=== PATIENT | female | born 1990 | race Caucasian/White ===

== ENCOUNTER 2019-04-24 20:17 | Emergency (ER) | payer SELFPAY ==
[2019-04-24] MEDS ORDERED: Ketorolac 60 MG/2 ML SDV IM ONE (20:26)
--- NOTE | 2019-04-24 20:27 | EDM.PDOC ---
ED HPI GENERAL MEDICAL PROBLEM - General Chief Complaint: Back Pain or Injury Stated Complaint: SEVERE BACK PAIN Time Seen by Provider: 04/24/19 20:25 Source of Information: Reports: Patient History Limitations: Reports: No Limitations - History of Present Illness INITIAL COMMENTS - FREE TEXT/NARRATIVE: HISTORY AND PHYSICAL: History of present illness: Patient is a 28-year-old female who presents to the emergency room today with complaints of mid thoracic/upper lumbar back pain. 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 She states with any movement or engaging of her core or trunk she has sharp pain. She states when she is resting or sitting still the pain is at a minimum. Describes it as muscular strain/spasm. She denies any injury, trauma, or falls. Review of systems: As per history of present illness and below otherwise all systems reviewed and negative. Past medical history: As per history of present illness and as reviewed below otherwise noncontributory. Surgical history: As per history of present illness and as reviewed below otherwise noncontributory. Social history: See social history for further information Family history: As per history of present illness and as reviewed below otherwise noncontributory. Physical exam: General: Well-developed and well-nourished 28-year-old female. Alert and oriented. Nontoxic appearing and in no acute distress. HEENT: Atraumatic, normocephalic, pupils equal and reactive bilaterally, negative for conjunctival pallor or scleral icterus, mucous membranes moist, TMs normal bilaterally, throat clear, neck supple, nontender, trachea midline. No drooling or trismus noted. No meningeal signs. No hot potato voice noted. Lungs: Clear to auscultation, breath sounds equal bilaterally, chest nontender. Heart: S1S2, regular rate and rhythm without overt murmur Abdomen: Soft, nondistended, nontender. Negative for masses or hepatosplenomegaly. Negative for costovertebral tenderness. Pelvis: Stable nontender. C-spine/Back: No pinpoint vertebral tenderness upon palpation. No crepitus, step -offs or obvious deformities. Paraspinous muscular tenderness to the distal thoracic and upper lumbar region bilaterally Patient is ambulatory into the emergency room without difficulty or deficit. Able to rock back on heels and walk on toes. Denies any urinary or fecal incontinence. Denies any numbness, tingling or saddle paresthesia. Skin: Intact, warm, dry. No lesions or rashes noted. Extremities: Atraumatic, moves all extremities per self without difficulty or deficits, negative for cords or calf pain. Neurovascular unremarkable. Neuro: Awake, alert, oriented. Cranial nerves II through XII unremarkable. Cerebellum unremarkable. Motor and sensory unremarkable throughout. Exam nonfocal. Notes: X-ray shows no acute findings. She states she did not feel much improvement with the IM injections. We'll switch to a narcotic pain medication with thorough education. Supportive care measures were reviewed and discussed. Voices understanding and is agreeable to plan of care. Denies any further questions or concerns at this time. Diagnostics: Thoracic/lumbar x-ray Therapeutics: Toradol, Norflex Prescription: [place] (#15) Impression: Back Pain Plan: 1. The medication you received today does cause drowsiness, so do not drive for the remaining day 2. When resting please lay on a flat firm surface. Limit your immobility to prevent muscle stiffness. Get up to ambulate/move around/gentle stretching multiple times throughout the day. May alternate heat and ice to the painful areas 3. Tylenol and/or Ibuprofen as needed for back pain. Otherwise take the prescribed [place] as directed, this medication may cause drowsiness a do not take it will driving her needing to be functioning outside of the house. 4. Please follow-up with your primary care provider as we discussed. Return to the ED as needed and as discussed. Definitive disposition and diagnosis as appropriate pending reevaluation and review of above. back Pain Score (Numeric/FACES): 10 - Related Data Allergies Allergy/AdvReac Type Severity Reaction Status Date / Time No Known Allergies Allergy Verified 04/24/19 20:21 Home Meds: Home Meds Acetaminophen/HYDROcodone [[place] 325-5 MG] 1 dose PO Q4H #20 tablet 04/24/19 [Rx ] ED ROS GENERAL - Review of Systems Review Of Systems: ROS reveals no pertinent complaints other than HPI. ED EXAM,LOWER BACK PAIN/INJURY - Physical Exam Exam: See Below (See dictation) Course - Vital Signs Last Recorded V/S: Last Vital Signs Temp 97 F 04/24/19 20:22 Pulse 80 09/30/19 21:53 Resp 17 04/24/19 21:53 BP 104/70 04/24/19 21:53 Pulse Ox 99 04/24/19 21:53 - Orders/Labs/Meds Meds: Medications Discontinued Medications Generic Name Dose Route Start Last Admin Trade Name Paddy PRN Reason Stop Dose Admin Ketorolac Tromethamine 60 mg 04/24/19 20:26 04/24/19 20:31 Toradol IM 04/24/19 20:27 60 mg ONETIME ONE Administration Orphenadrine Citrate 60 mg 04/24/19 20:26 04/24/19 20:30 Norflex IM 04/24/19 20:27 60 mg NOW STA Administration Departure - Departure Time of Disposition: 21:02 Disposition: Home, Self-Care 01 Clinical Impression: Acute mid back pain - Discharge Information Prescriptions: Acetaminophen/HYDROcodone [[place] 325-5 MG] 1 dose PO Q4H #20 tablet Instructions: Muscle Strain, [id number] Referrals: PCP,None [Primary Care Provider] - Forms: ED Department Discharge Additional Instructions: The following information is given to patients seen in the emergency department who are being discharged to home. This information is to outline your options for follow-up care. We provide all patients seen in our emergency department with a follow-up referral. The need for follow-up, as well as the timing and circumstances, are variable depending upon the specifics of your emergency department visit. If you don't have a primary care physician on staff, we will provide you with a referral. We always advise you to contact your personal physician following an emergency department visit to inform them of the circumstance of the visit and for follow-up with them and/or the need for any referrals to a consulting specialist. The emergency department will also refer you to a specialist when appropriate. This referral assures that you have the opportunity for follow-up care with a specialist. All of these measure are taken in an effort to provide you with optimal care, which includes your follow-up. Under all circumstances we always encourage you to contact your private physician who remains a resource for coordinating your care. When calling for follow-up care, please make the office aware that this follow-up is from your recent emergency room visit. If for any reason you are refused follow-up, please contact the [facility] Emergency Department at and asked to speak to the emergency department charge nurse. ANTON[facility] [address] [place] [address] [facility] [address] [place] [address] 1. The medication you received today does cause drowsiness, so do not drive for the remaining day 2. When resting please lay on a flat firm surface. Limit your immobility to prevent muscle stiffness. Get up to ambulate/move around/gentle stretching multiple times throughout the day. May alternate heat and ice to the painful areas 3. Tylenol and/or Ibuprofen as needed for back pain. Otherwise take the prescribed [place] as directed, this medication may cause drowsiness a do not take it will driving her needing to be functioning outside of the house. 4. Please follow-up with your primary care provider as we discussed. Return to the ED as needed and as discussed.
--- NOTE | 2019-04-24 20:54 | CR ---
INDICATION: Mid back pain after bending over. No history of trauma. COMPARISON: None available. TECHNIQUE: AP and lateral views of the thoracolumbar spine were obtained for a total of two views. FINDINGS: There is minimal scoliosis of the upper lumbar spine convex towards the left with the apex at the L2 level. There is no sign of fracture or subluxation. The vertebral bodies are normal in height and are in anatomic alignment. The intervertebral disc spaces are normal in height. Soft tissue planes are normal in appearance. The visualized lower chest and upper abdomen are normal in appearance. IMPRESSION: Mild scoliosis of the upper lumbar spine convex towards the left. Otherwise normal thoracolumbar spine. Dictated by Elliot Myers MD @ Apr 24 2019 8:52PM Signed by Dr. Elliot Myers @ Apr 24 2019 8:53PM
== END 2019-04-24 21:54 | disposition home or self-care (01) ==
LOC: MW.ED 20:17
DX: M54.6 Pain in thoracic spine (principal)
CPT/HCPCS: 72080; 96372; 99283; J1885; J2360

== ENCOUNTER 2020-06-15 12:52 | Emergency (ER) | payer MEDICAID ==
--- NOTE | 2020-06-15 13:24 | EDM.PDOC ---
ED HPI GENERAL MEDICAL PROBLEM - General Chief Complaint: Lower Extremity Injury/Pain Stated Complaint: LT ANKLE INJURY Time Seen by Provider: 06/15/20 12:53 Source of Information: Reports: Patient History Limitations: Reports: No Limitations - History of Present Illness INITIAL COMMENTS - FREE TEXT/NARRATIVE: HISTORY AND PHYSICAL: History of present illness: Patient is a 30-year-old female who presents to the ED today with concern of left ankle injury that occurred just prior to arrival to the ED. Patient states she was carrying groceries inside her house and she was walking up her steps. Patient states that she slipped and missed a step and twisted her left ankle. Patient states that she heard a "popping "sensation and had immediate pain to the outside of her left ankle. Patient states that she did not completely fall and hit her head or lose consciousness. Patient states that she was able to bear weight immediately following the incident but had pain with doing so. Patient states that she did not take anything for her symptoms and came immediately to the emergency room. Denies any other symptoms or concerns. Patient denies fever, chills, chest pain, shortness of breath, or cough. Denies headache, neck stiff ness, change in vision, syncope, or near syncope. Denies nausea, vomiting, abdominal pain, diarrhea, constipation, or dysuria. Has not noted any blood in urine or stool. Patient has been eating and drinking appropriately. Review of systems: As per history of present illness and below otherwise all systems reviewed and negative. Past medical history: As per history of present illness and as reviewed below otherwise noncontributory. Surgical history: As per history of present illness and as reviewed below otherwise noncontributory. Social history: See social history for further information Family history: As per history of present illness and as reviewed below otherwise noncontributory. Physical exam: General: Patient is alert, oriented, and in no acute distress. Patient sitting comfortably on exam table. HEENT: Atraumatic, normocephalic, pupils equal and reactive bilaterally, negative for conjunctival pallor or scleral icterus, mucous membranes moist, TMs normal bilaterally, throat clear, neck supple, nontender, trachea midline. No drooling or trismus noted. No meningeal signs. No hot potato voice noted. Lungs: Clear to auscultation, breath sounds equal bilaterally, chest nontender. Heart: S1S2, regular rate and rhythm without overt murmur Abdomen: Soft, nondistended, nontender. Negative for masses or hepatosp lenomegaly. Negative for costovertebral tenderness. Pelvis: Stable nontender. Genitourinary: Deferred. Rectal: Deferred. Skin: Intact, warm, dry. No lesions or rashes noted. Extremities: Patient does have pain with palpation of the lateral malleolus with mild edema of this area. Patient has limited range of motion of the left ankle due to pain and discomfort. Patient does have full range of motion of remaining bilateral lower extremities. Dorsalis pedis and posterior tibial pulses are grossly intact of the left lower extremity with capillary refill less than 2 seconds. Patient did ambulate into the emergency room today but did have pain with the left ankle and was limping with her gait. Otherwise, atraumatic, negative for cords or calf pain. Neurovascular unremarkable. Neuro: Awake, alert, oriented. Cranial nerves II through XII unremarkable. Cerebellum unremarkable. Motor and sensory unremarkable throughout. Exam nonfocal. Notes: Signs and symptoms are prompt return to the ED thoroughly discussed with patient. Discussed importance for follow-up with a primary care provider. Voices understanding and is agreeable to plan of care. Denies any further questions or concerns at this time. Diagnostics: Left ankle/foot XR Therapeutics: Crutches, left ankle boot to use until follow up with an orthopedic provider for ankle stabilization. Prescription: None Impression: Left ankle injury r/o fracture Plan: 1. Rest, ice, elevate the affected extremity. You can apply ice 15 minutes on, 15 minutes off. 2. Tylenol and/or Ibuprofen as directed for pain management or discomfort. 3. Follow up with an orthopedic provider / primary care provider as discussed. Return to the ED as needed and as discussed. Definitive disposition and diagnosis as appropriate pending reevaluation and review of above. Left Ankle Pain Score (Numeric/FACES): 10 - Related Data Allergies Allergy/AdvReac Type Severity Reaction Status Date / Time No Known Allergies Allergy Verified 06/15/20 13:07 Home Meds: Home Meds . [No Known Home Meds] 06/15/20 [History] Past Medical History - Past Health History Medical/Surgical History: Denies Medical/Surgical History Psychiatric History: Reports: Depression - Infectious Disease History Infectious Disease History: Reports: Chicken Pox - Past Surgical History Female Surgical History: Reports: Section Social & Family History - Family History Family Medical History: No Pertinent Family History - Tobacco Use Tobacco Use Status *Q: Current Every Day Tobacco User Years of Tobacco use: 12 Packs/Tins Daily: 1 - Caffeine Use Caffeine Use: Reports: Coffee, Energy Drinks - Recreational Drug Use Recreational Drug Use: No Review of Systems - Review of Systems Review Of Systems: Comprehensive ROS is negative, except as noted in HPI. ED EXAM, GENERAL - Physical Exam Exam: See Below (see dictation) Course - Vital Signs Last Recorded V/S: Last Vital Signs Temp 96 F L 06/15/20 13:08 Pulse 76 06/15/20 13:58 Resp 18 06/15/20 13:58 BP 102/68 06/15/20 13:58 Pulse Ox 99 06/15/20 13:58 - Orders/Labs/Meds Orders: Active Orders 24 hr Category Date Time Status DME for Discharge [COMM] Stat Oth 06/15/20 14:17 Ordered Departure - Departure Time of Disposition: 14:19 Disposition: Home, Self-Care 01 Clinical Impression: Left ankle injury Qualifiers: Encounter type: initial encounter Qualified Code(s): S99.912A - Unspecified injury of left ankle, initial encounter - Discharge Information Referrals: PCP,None [Primary Care Provider] - Forms: ED Department Discharge Additional Instructions: The following information is given to patients seen in the emergency department who are being discharged to home. This information is to outline your options for follow-up care. We provide all patients seen in our emergency department with a follow-up referral. The need for follow-up, as well as the timing and circumstances, are variable depending upon the specifics of your emergency department visit. If you don't have a primary care physician on staff, we will provide you with a referral. We always advise you to contact your personal physician following an emergency department visit to inform them of the circumstance of the visit and for follow-up with them and/or the need for any referrals to a consulting specialist. The emergency department will also refer you to a specialist when appropriate. This referral assures that you have the opportunity for follow-up care with a specialist. All of these measure are taken in an effort to provide you with optimal care, which includes your follow-up. Under all circumstances we always encourage you to contact your private physician who remains a resource for coordinating your care. When calling for follow-up care, please make the office aware that this follow-up is from your recent emergency room visit. If for any reason you are refused follow-up, please contact the [facility] Emergency Department at and asked to speak to the emergency department charge nurse. [facility] [address] [place] [address] [facility] [address] [place] [address] [facility] Professional Building [address] [facility], [address] [place] [address] Dr Tellez, Orthopedist [facility] [address] [place] [address] Dr Bower - Dr Montoya - Dr Burgos [facility] [address] [place] [address] [address] [place] [address] 1. Rest, ice, elevate the affected extremity. You can apply ice 15 minutes on, 15 minutes off. 2. Tylenol and/or Ibuprofen as directed for pain management or discomfort. 3. Follow up with an orthopedic provider / primary care provider as discussed. Return to the ED as needed and as discussed. Sepsis Event Note (ED) - Evaluation Sepsis Screening Result: No Definite Risk - Focused Exam Vital Signs: Vital Signs Temp Pulse Resp BP Pulse Ox 06/15/20 13:58 76 18 102/68 99 06/15/20 13:08 96 F L 98 20 102/59 L 97 - My Orders Last 24 Hours: My Active Orders 06/15/20 14:17 DME for Discharge [COMM] Stat - Assessment/Plan Last 24 Hours: My Active Orders 06/15/20 14:17 DME for Discharge [COMM] Stat
--- NOTE | 2020-06-15 13:58 | CR ---
Indication: [place] a pop. Technique: Two views of the left foot. Comparison: None Findings: No acute fracture or subluxation is identified. The joint spaces are well maintained. Impression: No acute fracture. Dictated by Natalie Braun MD @ Jun 15 2020 2:00PM Signed by Dr. Natalie Braun @ Jun 15 2020 2:00PM
--- NOTE | 2020-06-15 13:58 | CR ---
Indication: [place] a pop. Technique: Three views of the left ankle. Comparison: None Findings: The ankle mortise is intact. The talar dome is intact. No acute fracture or subluxation is identified. Impression: No acute fracture Dictated by Natalie Braun MD @ Jun 15 2020 1:57PM Signed by Dr. Natalie Braun @ Jun 15 2020 2:00PM
== END 2020-06-15 14:47 | disposition home or self-care (01) ==
LOC: MW.ED 12:52
DX: S99.912A Unspecified injury of left ankle, initial encounter (principal); F17.210 Nicotine dependence, cigarettes, uncomplicated; X50.1XXA Overexertion from prolonged static or awkward postures, initial encounter
CPT/HCPCS: 73610-26-LT; 73610-LT; 73620-26-LT; 73620-LT; 99283; 99283-25